=== PATIENT | female | born 1960 | race Two or more races ===

== ENCOUNTER 2024-08-24 18:08 | Emergency (ER) | payer SELFPAY ==
[~2024-08-24] VITALS: Ht 167.6 cm; Wt 85.0 kg
--- NOTE | 2024-08-24 18:29 | ED.PDOC ---
History of Present Illness HPI Comments 63 y/o F is BIBA for near syncope event. Event is stated to have taken place at work, sudden and unprovoked, at around 1700, this evening. Patient began having nonradiating, lower abdominal cramping and nausea before becoming lightheaded. She was noted by EMS to have been pale and diaphoretic on scene. All other vitals were stable and within normal limits otherwise. En route, patient was given 1g Tylenol and 1L NS bolus. Upon arrival to ED, pain has subsided. He skin is stated to have turned red a few minutes prior. She denies any previous history of similar events in the past, recent ailment,s or known allergies to medications. Patient denies having any further associated symptoms at this time. 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, Medications, Allergies Allergies: Coded Allergies: NO KNOWN ALLERGIES (Unverified , 08/24/24) Information Source: Patient, Emergency Med Personnel Mode of Arrival: EMS Severity: Moderate Timing: Hours Duration: Since onset Prehospital treatment: 12 Lead EKG, Accucheck, Hand Cultivator, IVF, Pain Meds (1g Tylenol ) Past Medical History PAST MEDICAL HISTORY: Denies Surgical History: Cholecystectomy SENIOR TECHNICAL SUPPORT ANALYST History: No Pertinent SENIOR TECHNICAL SUPPORT ANALYST History Social History Smoker: Non-Smoker Alcohol: Denies ETOH Use Drugs: Denies Drug Use Lives In: Home All Other Systems: Reviewed and Negative (As per HPI) Physical Exam General Appearance: Mild Distress, Obese HEENT: Normal ENT Inspection, Pharynx Normal, TMs Normal Neck: Full Range of Motion, Non-Tender, Normal, Normal Inspection Respiratory: Chest Non-Tender, Lungs Clear, No Accessory Muscle Use, No Respiratory Distress, Normal Breath Sounds Cardiovascular: No Edema, No JVD, No Murmur, No Gallop, Normal Peripheral Pulses, Regular Rate/Rhythm Breast Exam: Deferred Gastrointestinal: No Organomegaly, Non Tender, No Pulsatile Mass, Normal Bowel Sounds, Soft Genitalia: Deferred Pelvic: Deferred Rectal: Deferred Extremities: No calf tenderness, Normal capillary refill, Normal inspection, Normal range of motion, Non-tender, No pedal edema Musculoskeletal : Apperance: Normal 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 Was a procedure done?: No EKG EKG : Pulse Rate (adult): 66 [place]: Normal Cardiac Rhythm: NSR Block: None Hypertrophy: None ST: Normal Comments no STEMI Differential Dx Considerations may include: vasovagal response, dehydration, electrolyte imbalance, viral syndrome, UTI, among others X-Ray, Labs, Meds, VS Vital Signs Date Time Temp Pulse Resp B/P (MAP) Pulse Ox O2 Delivery O2 Flow Rate FiO2 08/24/24 23:41 98.4 62 18 103/61 (75) 97 98.4 08/24/24 18:40 66 08/24/24 18:19 98.3 64 20 127/45 (72) 99 98.3 08/24/24 18:15 66 Lab Test 08/24/24 18:25 Range/Units White Blood Count 13.4 H 4.4-10.8 10^3/uL Red Blood Count 4.97 4.0-5.20 10^6/uL Hemoglobin 13.2 12.2-16.2 g/dL Hematocrit 40.0 36.0-46.0 % Mean Corpuscular Volume 80.4 80.0-100.0 fL Mean Corpuscular Hemoglobin 26.6 L 28.0-32.0 pg Mean Corpuscular Hemoglobin Concent 33.0 32.0-36.0 g/dL Red Cell Distribution Width 15.0 H 11.8-14.3 % Platelet Count 341 140-450 10^3/uL Mean Platelet Volume 7.9 6.9-10.8 fL Neutrophils (%) (Auto) 61.6 37.0-80.0 % Lymphocytes (%) (Auto) 31.8 10.0-50.0 % Monocytes (%) (Auto) 5.9 0.0-12.0 % Eosinophils (%) (Auto) 0.4 0.0-7.0 % Basophils (%) (Auto) 0.3 0.0-2.0 % Neutrophils # (Auto) 8.2 1.6-8.6 10 ^3/uL Lymphocytes # (Auto) 4.3 0.4-5.4 10 ^3/uL Monocytes # (Auto) 0.8 0-1.3 10 ^3/uL Eosinophils # (Auto) 0.1 0-0.8 10 ^3/uL Basophils # (Auto) 0 0-0.2 10 ^3/uL Nucleated Red Blood Cells 0.1 % Sodium Level 143 136-145 mmol/L Potassium Level 3.4 L 3.5-5.1 mmol/L Chloride Level 112 H 98-107 mmol/L Carbon Dioxide Level 20 20-31 mmol/L Anion Gap 11 5-15 Blood Urea Nitrogen 16 9-23 mg/dL Creatinine 1.02 0.550-1.02 mg/dL Glomerular Filtration Rate Calc 62 >90 mL/min BUN/Creatinine Ratio 15.7 10.0-20.0 Serum Glucose 182 H 74-106 mg/dL Calcium Level 9.8 8.7-10.4 mg/dL Magnesium Level 2.0 1.6-2.6 mg/dL Troponin I High Sensitivity 6 </=34 ng/L Current Medications Medications (Trade) Dose Ordered Sig/Nely Route Start Time Stop Time Status Last Admin Ondansetron HCl (Zofran Po) 8 mg ONCE ONCE PO 08/24/24 18:30 08/24/24 18:31 DC 08/24/24 18:40 Al Hydrox/Mg Hydrox/Simethicone (Maalox Plus) 30 ml ONCE ONCE PO 08/24/24 18:30 08/24/24 18:31 DC 08/24/24 18:39 Belladonna Alkaloids/ Phenobarbital ( Elixir) 5 ml ONCE ONCE PO 08/24/24 18:30 08/24/24 18:31 DC 08/24/24 18:40 Time of 1ST Reevaluation: 18:50 Reevaluation 1ST: Improved Patient Education/Counseling: Diagnosis, Treatment, Need For Follow Up Family Education/Counseling: No Family Present Departure 1 Departure Time of Disposition: 21:00 Impression: Primary Impression: Near syncope Additional Impression: Abdominal cramping Disposition: 01 HOME / SELF CARE / HOMELESS Condition: Stable Discharged With: Self Critical Care Note Critical Care Time?: No Stability Stability form required: No Heart Score Heart Score: Heart Score Response (Comments) Value History N/A 0 EKG N/A 0 Age N/A 0 Risk Factors N/A 0 Troponin N/A 0 Total 0 I personally scribed for GOPAL CASEY MD ([email or web address]) on 08/24/24 at 18:29. Electronically submitted by Jonatan Manzano ([email or web address]). I personally scribed for GOPAL CASEY MD ([email or web address]) on 08/24/24 at 18:40. Electronically submitted by Jonatan Manzano ([email or web address]). GOPAL CASEY MD Aug 24, 2024 18:29
[2024-08-24 18:36] LABS: Basophils # (auto) 0 10 ^3/uL (0-0.2); Basophils % (auto) 0.3 % (0.0-2.0); Eosinophils # (auto) 0.1 10 ^3/uL (0-0.8); Eosinophils % (auto) 0.4 % (0.0-7.0); Hemoglobin 13.2 g/dL (12.2-16.2); Lymphocytes # (auto) 4.3 10 ^3/uL (0.4-5.4); Lymphocytes % (auto) 31.8 % (10.0-50.0); Mean Corpuscular Hemoglobin 26.6 pg (28.0-32.0); Mean Corpuscular Volume 80.4 fL (80.0-100.0); Monocytes # (auto) 0.8 10 ^3/uL (0-1.3); Monocytes % (auto) 5.9 % (0.0-12.0); Neutrophils # (auto) 8.2 10 ^3/uL (1.6-8.6); Neutrophils % (auto) 61.6 % (37.0-80.0); Nucleated Red Blood Cells % 0.1 %; Platelet Count (auto) 341 10^3/uL (140-450); Red Blood Cells 4.97 10^6/uL (4.0-5.20); White Blood Cell 13.4 10^3/uL (4.4-10.8)
[2024-08-24] MEDS: MAALOX PLUS or MAALOX 30 ML PO ONE (18:39)
[2024-08-24] MEDS: DONNATAL 5ml ORAL Elix (BELLADONNA ALK-PHENOBARB) PO ONE (18:40)
[2024-08-24] MEDS: ONDANSETRON ODT 4 MG TAB PO ONE (18:40)
[2024-08-24 18:42] LABS: Sodium 143 mmol/L (136-145)
[2024-08-24 18:43] LABS: Anion Gap 11 (5-15); Calcium 9.8 mg/dL (8.7-10.4)
[2024-08-24 18:47] LABS: Carbon Dioxide 20 mmol/L (20-31); Chloride 112 mmol/L (98-107); Potassium 3.4 mmol/L (3.5-5.1)
[2024-08-24 18:48] LABS: BUN/Creatinine Ratio 15.7 (10.0-20.0); Blood Urea Nitrogen 16 mg/dL (9-23)
[2024-08-24 18:52] LABS: Glucose 182 mg/dL (74-106)
[2024-08-24 23:41] VITALS: BP 103/61; PULSE 62; RESP 18; TEMP 98.4; O2SAT 97
--- NOTE | 2024-08-27 12:40 | ECG ---
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
--- NOTE | 2024-08-27 12:41 | ECG ---
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
== END 2024-08-24 23:42 | disposition home or self-care (01) ==
LOC: EDBD 18:08 → ER 18:08
DX: R55 Syncope and collapse (principal); R10.30 Lower abdominal pain, unspecified; R11.0 Nausea; R42 Dizziness and giddiness; R61 Generalized hyperhidrosis; Z90.49 Acquired absence of other specified parts of digestive tract; Z88.6 Allergy status to analgesic agent
CPT/HCPCS: 36415; 80048; 83735; 84484; 85025; 93005; 99284; Q0162